=== PATIENT | female | born 1970 | race Two or more races ===

== ENCOUNTER 2019-06-20 16:56 | Emergency (ER) | payer MEDICAID ==
[~2019-06-20] VITALS: Ht 160 cm; Wt 102.1 kg
[2019-06-20] MEDS ORDERED: ONDANSETRON HCL/PF 4 MG/2 ML VIAL ONE (17:11)
[2019-06-20 17:16] LABS: BASOPHILS # (AUTO) 0.1 /CMM (0.0-0.2); BASOPHILS % (AUTO) 0.9 % (0.0-2.0); EOSINOPHILS % (AUTO) 2.3 % (0.0-6.0); HEMATOCRIT 35 % (33-45); HEMOGLOBIN 10.7 g/dL (11.5-14.8); LYMPHOCYTES # (AUTO) 3.8 /CMM (0.8-4.8); LYMPHOCYTES % (AUTO) 33.2 % (20.0-44.0); MEAN CORPUSCULAR HGB CONC 31 g/dl (31.0-36.0); MEAN CORPUSCULAR VOLUME 72 fL (82-100); MONOCYTES # (AUTO) 0.8 /CMM (0.1-1.30); MONOCYTES % (AUTO) 6.9 % (2.0-12.0); NEUTROPHILS # (AUTO) 6.5 /CMM (1.8-8.9); NEUTROPHILS % (AUTO) 56.7 % (43.0-81.0); PLATELET COUNT (AUTO) 345 /CMM (150-450); RED BLOOD CELL COUNT(AUTO) 4.81 MIL/uL (4.0-5.2); WHITE BLOOD COUNT (AUTO) 11.5 K/uL (4.3-11.0)
--- NOTE | 2019-06-20 17:20 | NUR ---
Yamel pagan in EDM - 06/20/19 at 1751 by RUSLAN PT REFUSED TO BE TAKEN TO CT UNLESS SEEN BY MADISON MURILLO
--- NOTE | 2019-06-20 17:21 | NUR ---
PT BIB FRIENDS, WITNESSED SYNCOPE AND WAS ASSISTED TO THE GROUND. DENIES CP AT THE MOMENT. PT LETHARGIC BUT IS RESPONSIVE, BREATHING EVEN AND UNLABORED ON ROOM AIR. PT CONNECTED TO THE MONITOR.
[2019-06-20 17:26] LABS: CALCIUM, SERUM 8.6 mg/dL (8.5-10.1); CARBON DIOXIDE 23 mmol/L (21-32); CHLORIDE 106 mmol/L (98-107); CREATININE 0.9 mg/dL (0.6-1.3); GLUCOSE 109 mg/dL (74-106); POTASSIUM 3.4 mmol/L (3.5-5.1); SODIUM SERUM 141 mmol/L (136-145); UREA NITROGEN, BLOOD 14 mg/dL (7-18)
[2019-06-20] MEDS ORDERED: IV NS 0.9% 1,000 ML BAG IV ONE (17:30)
[2019-06-20] MEDS ORDERED: ONDANSETRON HCL/PF 4 MG/2 ML VIAL IVP ONE (17:30)
--- NOTE | 2019-06-20 17:30 | NUR ---
PT REFUSED TO GO TO CT. PREFERS TO SEE THE PROVIDER 1ST STATED BY THE PT TO DISCUSS HER CONCERNS.
[2019-06-20 17:32] LABS: ALANINE AMINOTRANSFERASE 22 U/L (12-78); ALBUMIN 3.6 g/dL (3.4-5.0); ALKALINE PHOSPHATASE 105 U/L (46-116); ASPARTATE AMINOTRANSFERASE 18 U/L (15-37); BILIRUBIN,TOTAL 0.2 mg/dL (0.2-1.0); TOTAL PROTEIN, SERUM 7.6 g/dL (6.4-8.2)
--- NOTE | 2019-06-20 18:10 | NUR ---
ULTRASOUND AT BEDSIDE
--- NOTE | 2019-06-20 18:59 | NUR ---
XRAY AT BEDSIDE
--- NOTE | 2019-06-20 19:29 | NUR ---
REPORT GIVEN TO ABIEL VALDEZ
--- NOTE | 2019-06-20 19:30 | NUR ---
REPORT RECIEVED FROM ABIEL SARMIENTO
[2019-06-20] MEDS ORDERED: IV NS 0.9% 250 ML IV ONE (20:42)
[2019-06-20] MEDS ORDERED: CT SWABBABLE VALVE TRANS SET 1 EA INFUS.SET MC ONE (20:42)
[2019-06-20] MEDS ORDERED: IOHEXOL-350 100 ML VIAL IV ONE ×2 (20:42→21:37)
--- NOTE | 2019-06-20 21:09 | NUR ---
PT BROUGHT BY RADIOLOGY TO CT
--- NOTE | 2019-06-20 21:11 | NUR ---
PT BROUGHT TO CT.
--- NOTE | 2019-06-20 21:55 | NUR ---
PT BROUGHT BACK FROM CT.
[2019-06-20 23:00] VITALS: BP 126/65
--- NOTE | 2019-06-20 23:00 | NUR ---
Patient discharged to home in stable condition. Written and verbal after care instructions given. Patient verbalizes understanding of instruction. IV removed. Catheter intact and site benign. Pressure and 4x4 applied to site. No bleeding noted. PT ambulatory with a steady gait.
== END 2019-06-20 23:02 | disposition home or self-care (01) ==
LOC: ER 16:59
DX: R55 Syncope and collapse (principal)
CPT/HCPCS: 36415; 70450; 71045; 71275; 73590; 80048; 80076; 82962; 84484; 85025; 85378; 93971; 96361; 96374; 99284; G0480; J2405; J7030; J7050; Q9967 ×2